=== PATIENT | male | born 1970 | race Caucasian/White ===

== ENCOUNTER → 2018-06-28 | Outpatient (CLI) | payer BC ==
[~2018-06-28] MED LIST: CYCL10TA9 PO; IBUP800T26 PO; SERT100T8 PO; TRAM50TA2 PO
== END ==
LOC: LABNPT 19:24
PROVIDERS: ATTEND Nurse Practitioner Family
DX: R79.89 Other specified abnormal findings of blood chemistry (principal)
CPT/HCPCS: 84403